=== PATIENT | female | born 1970 | race African-American/Black ===

== ENCOUNTER → 2018-08-05 | Day surgery (SDC) | payer OTHER ==
[2018-08-03 15:38] LABS: BLOOD UREA NITROGEN 14 mg/dL (7-26); BUN/CREATININE RATIO 19 (6-25); CALCIUM 9.9 mg/dL (8.4-10.2); CARBON DIOXIDE 31 mmol/L (22-29); CHLORIDE 96 mmol/L (98-107); CREATININE, SERUM 0.72 mg/dL (0.57-1.11); EST GLOMERULAR FILTRATION RATE > 60 ML/MIN (60-); GLUCOSE 105 mg/dL (74-118); SODIUM 134 mmol/L (136-145)
--- NOTE | 2018-08-03 16:33 | Diagnostic Imaging Report ---
EXAMINATION: CHEST 2 VIEWS INDICATION: Pre-admit. COMPARISON: None FINDINGS: TUBES and LINES: None. LUNGS: Lungs are well inflated. Lungs are clear. There is no evidence of pneumonia or pulmonary edema. PLEURA: No pleural effusion or pneumothorax. HEART AND MEDIASTINUM: The cardiomediastinal silhouette is unremarkable. BONES AND SOFT TISSUES: No acute osseous lesion. Soft tissues are unremarkable. UPPER ABDOMEN: No free air under the diaphragm. IMPRESSION: No acute radiographic abnormality. Signed by: Dr. Farhana Munoz MD on 08/03/2018 4:30 PM
[~2018-08-05] MED LIST: AMLODIPINE BESY10 MG PO; BIOTIN2500 MCG; BUPIVACAINE HCL 0.5% INJ 30 ML VIAL INJ ONE; CEFAZOLIN SOD 1 GM/NS 50ML 50 ML IV ONE; DEXAMETHASONE SOD PHOS INJ 4 MG/ML VIAL ONE; FENTANYL CITRATE/PF 100MCG/2 ML INJ ONE; HYDROCHLOROTHIA25 MG; KETOROLAC TROMETHAMINE 30 MG/ML VIAL ONE; LIDOCAINE HCL 2% LOCAL INJ 5 ML SDV VIAL INJ ONE; MIDAZOLAM HCL 2 MG/2 ML VIAL ONE; ONDANSETRON HCL INJ 2MG/ML 2ML 2 MG/ML VIAL ONE; PRENATAL VITAM1 EACH; PROPOFOL IV EMULSION 10 MG/ML 20 ML VIAL ONE; SEVOFLURANE INHAL SOLN 250 ML PEN BTL ONE; VALTREX1000 MG PO; ZYRTEC10 M3
--- OUTSIDE RECORDS SUMMARY | 2018-08-05 05:11 | XMS REPORT ---
Author Rashad Castellanos Organization [employer] Address Unknown Phone Unavailable Care Team Providers Care Slip Caster Name Role Phone Rashad Ray CP Unavailable Allergies, Adverse Reactions, Alerts Substance Reaction Event Type Erythromycin vomit Drug Allergy Diflucan fixed drug eruption Drug Allergy Bactrim photosensitive, anexity Drug Allergy Problems Problem Type Condition Code Onset Dates Condition Status Assessment Metatarsalgia of right foot M77.41 Active Assessment Hallux valgus (acquired), right foot M20.11 Active Assessment Metatarsalgia of left foot M77.42 Active Assessment Pain in right foot M79.671 Active Assessment Pain in left foot M79.672 Active Problem Hallux valgus (acquired), left foot M20.12 Active Problem Pain in right foot M79.671 Active Problem Hallux valgus (acquired), right foot M20.11 Active Problem Metatarsalgia of right foot M77.41 Active Assessment Hallux valgus (acquired), left foot M20.12 Active Problem Pain in left foot M79.672 Active Problem Metatarsalgia of left foot M77.42 Active Medications Medication Code System Code Instructions Start Date End Date Status Dosage Lisinopril [facility] [address]-76 Active not defined Toprol XL [facility] [address]-48 Active not defined Valacyclovir HCl [facility] [address]-03 Active not defined Vital Signs Date/Time: August 11, 2017 BMI 21.92 Index Weight 116 lbs Height 61 in Results Name Result Date Reference Range Unit Abnormality Flag X ray : Foot, right X ray : Foot, left Summary Purpose [employer] Submission
--- OUTSIDE RECORDS SUMMARY | 2018-08-05 05:11 | XMS REPORT | Summary of Care ---
Author Author TURNER CALLAWAY M.D. Organization Unknown Address Unknown Phone Unavailable Care Team Providers Care Thread Machine Operator Name Role Phone TURNER CALLAWAY M.D. Unavailable Unavailable Unavailable Unavailable Functional Status Name Dates Details Functional status health issues are not documented Status: Name Dates Details Cognitive status health issues are not documented Status: Problems Name Dates Details Tendinitis of right knee (727.09, M76.891) Status: Active Hip strain, left, initial encounter (843.9, S76.012A) Status: Active Medications Name Dates Details Valtrex TABS Active Spironolactone TABS * Refills: 0 Active Allergies and Adverse Reactions Name Dates Details Bactrim (Allergy) Status: Active Diflucan (Allergy) Status: Active erythromycin (Allergy) Status: Active Past Medical History Name Dates Details History of Arthritis (716.90, M19.90) Status: Resolved History of Back pain (724.5, M54.9) Status: Resolved History of High blood pressure (401.9, I10) Status: Resolved Procedures Procedure Dates Details History of Cyst excision Completed Immunization Name Dates Details Immunizations not documented Social History Name Dates Details - Status: Name Dates Details Never smoker Vital Signs Date Test Result Details [id number] Height 61 in Status: Weight 116 lb Status: Body Mass Index Calculated 21.92 kg/m2 Status: Body Surface Area Calculated 1.5 m2 Status: Results Date Description Value Details [id number] [U] XRAY HIP UNILATERAL MIN 2 VWS LEFT [id number] XR HIP UNILATERAL MIN 2 VWS LEFT Images acquired, not reported on this accession number. Plan of Care Name Dates Details Planned Observations Planned Goals not documented Interventions Provided Labs/Procedures/Imaging* [U] XRAY HIP UNILATERAL MIN 2 VWS LEFT [id number]; Done: 09 Jan 2018 Follow-ups/Referrals* Physical Therapy Referral Ortho; Done: 09 Jan 2018 Plan* Patient Education/Instructions: * Patient Education Provided * Reassurance * Patient/Parent to call or return with any abnormal changes * Orders: * Physical Therapy * Follow Up: * Return to the clinic in 6 weeks or as needed. Instructions Name Dates Details Instructions not documented Encounters Appointment; TURNER CALLAWAY M.D. Encounter Diagnosis: Problem not documented On: 09-Jan-2018 15:20
--- OUTSIDE RECORDS SUMMARY | 2018-08-05 05:11 | XMS REPORT | CCD ---
Author Author Auto Generated Organization [facility] Address Unknown Phone Unavailable Care Team Providers Care White Kid Buffer Name Role Phone Monse Hodgson RP Allergies, Adverse Reactions, Alerts Substance Reaction Status Bactrim Active Diflucan Active erythromycin Active Medications Medication Instructions Start Date End Date Status ondansetron 4 mg, 2 mL, Route: IVP, Drug form: 09/04/2012 09/04/2012 Discontinued INJ, ONCE, Dosing Weight 50.455, kg, PRN Nausea & Vomiting, Start date: 09/04/12 9:51:00 promethazine 12.5 mg, 50 mL, Route: IVPB, Drug 09/04/2012 09/04/2012 Discontinued form: SOLN, ONCE, Dosing Weight 50.455, kg, PRN Nausea & Vomiting, Start date: 09/04/12 9:51:00 ephedrine 5 mg, 0.1 mL, Route: IVP, Drug 09/04/2012 09/04/2012 Discontinued form: INJ, Q5Min, Dosing Weight 50.455, kg, PRN Low Blood Pressure, Start date: 09/04/12 9:51:00, Duration: 30 day, Stop date: 10/04/12 9:50:00 glycopyrrolate 0.2 mg, 1 mL, Route: IVP, Drug 09/04/2012 09/04/2012 Discontinued form: INJ, Q5Min, Dosing Weight 50.455, kg, PRN Bradycardia, Start date: 09/04/12 9:51:00, Duration: 3 doses or times, Stop date: Limited # of times albuterol 0.083% 2.49 mg, 3 mL, Route: NEB, Drug 09/04/2012 09/04/2012 Discontinued inhalation solution form: SOLN, Q5Min, Dosing Weight 50.455, kg, PRN Wheezing, Priority: STAT, Start date: 09/04/12 9:51:00, Duration: 30 day, Stop date: 10/04/12 9:50:00 racepinephrine 11.25 mg, 0.5 mL, Route: NEB, Drug 09/04/2012 09/04/2012 Discontinued Form: SOLN, Dosing Weight 50.455, kg, PRN, PRN Shortness of breath, Start date: 09/04/12 9:51:00, Duration: 30 day, Stop date: 10/04/12 9:50:00 diphenhydrAMINE 12.5 mg, 0.25 mL, Route: IVP, Drug 09/04/2012 09/04/2012 Discontinued form: INJ, PRN, Dosing Weight 50.455, kg, PRN Itching, Start date: 09/04/12 9:51:00, Duration: 30 day, Stop date: 10/04/12 9:50:00 flumazenil 0.2 mg, 2 mL, Route: IVP, Drug 09/04/2012 09/04/2012 Discontinued form: INJ, PRN, Dosing Weight 50.455, kg, PRN Benzodiazepine Reversal, Initial dose, Start date: 09/04/12 9:51:00, Duration: 30 day, Stop date: 10/04/12 9:50:00 naloxone 0.04 mg, 0.1 mL, Route: IVP, Drug 09/04/2012 09/04/2012 Discontinued form: INJ, Q2MIN, Dosing Weight 50.455, kg, PRN Narcotic Reversal, Start date: 09/04/12 9:51:00, Duration: 8 doses or times, Stop date: Limited # of times meperidine 12.5 mg, 0.5 mL, Route: IVP, Drug 09/04/2012 09/04/2012 Discontinued form: INJ, Q30Min, Dosing Weight 50.455, kg, PRN Other -See Comment, For shivering, Start date: 09/04/12 9:51:00, Duration: 2 doses or times, Stop date: Limited # of times morphine Sulfate 2 mg, 0.5 mL, Route: IVP, Drug 09/04/2012 09/04/2012 Discontinued form: INJ, Q5Min, Dosing Weight 50.455, kg, PRN Pain Score 4-6, Start date: 09/04/12 9:51:00, Duration: 8 doses or times, Stop date: Limited # of times fentanyl 25 microgram, 0.5 mL, Route: IVP, 09/04/2012 09/04/2012 Discontinued Drug form: INJ, Q5Min, Dosing Weight 50.455, kg, PRN Pain Score 6-10, Start date: 09/04/12 9:51:00, Duration: 4 doses or times, Stop date: Limited # of times Lactated Ringers 1,000 mL, Rate: 50 ml/hr, Infuse 09/04/2012 09/04/2012 Discontinued Injection IV 1,000 over: 20 hr, Route: IV, Dosing mL Weight 50.455 kg, Total Volume: 1,000, Start date: 09/04/12 9:51:00, Duration: 30 day, Stop date: 10/04/12 9:50:00 labetalol 5 mg, 1 mL, Route: IVP, Drug form: 09/04/2012 09/04/2012 Discontinued INJ, Q5Min, Dosing Weight 50.455, kg, PRN Elevated BP, Start date: 09/04/12 9:51:00, Duration: 5 doses or times, Stop date: Limited # of times acetaminophen-hydroc 15 mL, Route: PO, Drug Form: SOLN, 09/04/2012 09/04/2012 Discontinued odone 325 mg-10 Dosing Weight 50.455, kg, Q4H, PRN mg/15 mL oral Pain Score 4-6, Start date: solution 09/04/12 9:51:00, Duration: 30 day, Stop date: 10/04/12 9:50:00 enalapril 5 mg oral 10 mg, 2 tab, PO, Daily, 30 tab, 08/31/2012 Ordered tablet Substitution Allowed, TAB Toprol-XL 25 mg oral 25 mg, 1 tab, PO, Daily, 90 tab, 08/31/2012 Ordered tablet, extended Substitution Allowed, ERTAB release Ancef 2 gm, 100 mL, Route: IVPB, Drug 09/04/2012 09/04/2012 Discontinued form: INJ, ONCALL, Start date: 09/04/12 5:00:00, Duration: 1 day, Stop date: 09/05/12 4:59:00 lidocaine 1% 0.5 mL, Route: INTRADERM, Dosing 09/04/2012 09/04/2012 Completed Weight 50.455, kg, ONCALL, Start date: 09/04/12 9:00:00, Duration: 1 doses or times Lactated Ringers 1,000 mL, Rate: 25 ml/hr, Infuse 09/04/2012 09/04/2012 Discontinued Injection IV 1000 mL over: 40 hr, Route: IV, Dosing Weight 50.455 kg, Total Volume: 1,000, Start date: 09/04/12 8:15:00, Duration: 30 day, Stop date: 10/04/12 8:14:00 tramadol 50 mg, 1 tab, Route: PO, Drug form: 09/04/2012 09/04/2012 Discontinued TAB, Q4H, Dosing Weight 50.455, kg, PRN Pain Score 4-6, Start date: 09/04/12 10:41:00, Duration: 48 hr, Stop date: 09/06/12 10:40:00 ketorolac 15 mg, 0.5 mL, Route: IVP, Drug 09/04/2012 09/04/2012 Discontinued form: INJ, Q6H, Dosing Weight 50.455, kg, Start date: 09/04/12 12:00:00, Duration: 4 day, Stop date: 09/08/12 6:00:00 [id number]-[id number]-41 oral 1 tab, PO, Daily, 84 tab, 08/31/2012 Ordered tablet Substitution Allowed, Maintenance, TAB Benadryl 25 mg oral PO, prn, Substitution Allowed 08/31/2012 Ordered tablet prn valacyclovir 1 g 1 gm, 1 tab, PO, Q24H, 14 tab, 08/31/2012 Ordered oral tablet Substitution Allowed, TAB Vital Signs Most recent to oldest [Reference Range]: 1 2 3 Height 154.94 cm (09/04/2012 08:20:00) 154.94 cm (08/31/2012 16:44:00) Current Weight 50.455 kg (09/04/2012 08:20:00) Temperature Oral [96.4-99.1 DegF] 99.4 DegF *HI* (08/31/2012 16:54:00) Systolic Blood Pressure [90-140 mmHg] 136 mmHg (09/04/2012 11:15:00) 133 mmHg (09/04/2012 11:05:00) 126 mmHg (09/04/2012 10:55:00) Diastolic Blood Pressure [60-90 mmHg] 82 mmHg (09/04/2012 11:15:00) 81 mmHg (09/04/2012 11:05:00) 81 mmHg (09/04/2012 10:55:00) Respiratory Rate [14-20 BRMIN] 17 BRMIN (09/04/2012 10:15:00) 17 BRMIN (09/04/2012 10:05:00) 19 BRMIN (09/04/2012 10:00:00) Peripheral Pulse Rate [60-100 bpm] 55 bpm *LOW* (09/04/2012 08:20:00) 56 bpm *LOW* (08/31/2012 16:54:00) Weight 50.455 kg (08/31/2012 16:44:00) Results CHEMISTRY Most recent to oldest [Reference Range]: 1 Sodium Lvl [135-145 mEq/L] 137 mEq/L (08/31/2012 17:00:00) Potassium Lvl [3.5-5.1 mEq/L] 3.7 mEq/L (08/31/2012 17:00:00) Chloride Lvl [95-109 mEq/L] 102 mEq/L (08/31/2012 17:00:00) CO2 [24-32 mEq/L] 27 mEq/L (08/31/2012 17:00:00) AGAP [10.0-20.0 mEq/L] 11.7 mEq/L (08/31/2012 17:00:00) Creatinine Lvl [0.5-1.4 mg/dL] 0.7 mg/dL (08/31/2012 17:00:00) eGFR 125 mL/min/1.73m2 1 *NA* (08/31/2012 17:00:00) BUN [7-22 mg/dL] 14 mg/dL (08/31/2012 17:00:00) B/C Ratio [6-25] 20 (08/31/2012 17:00:00) Glucose Lvl [70-99 mg/dL] 78 mg/dL 2 (08/31/2012 17:00:00) Total Protein [6.4-8.4 g/dL] 7.1 g/dL (08/31/2012:00) Albumin Lvl [3.5-5.0 g/dL] 3.8 g/dL (08/31/2012:00:00) Globulin [2.0-4.0 g/dL] 3.3 g/dL (08/31/2012::00) A/G Ratio [0.7-1.6] 1.2 (08/31/2012::00) Calcium Lvl [8.5-10.5 mg/dL] 8.9 mg/dL (08/31/2012::00) ALT [0-65 unit/L] 21 unit/L (08/31/2012:00) AST [0-37 unit/L] 16 unit/L (08/31/2012:00) Alk Phos [39-136 unit/L] 45 unit/L (08/31/2012:00) Bili Total [0.2-1.3 mg/dL] 0.3 mg/dL (08/31/2012:00) U Preg [Negative] Negative (08/31/2012:00) 1Result Comment: The eGFR is calculated using the CKD-EPI formula. In most young, healthy individuals the eGFR will be >90 mL/min/1.73m2. The eGFR declines with age. An eGFR of 60-89 may be normal in some populations, particularly the elderly, for whom the CKD-EPI formula has not been extensively validated. Use of the eGFR is not recommended in the following populations: Individuals with unstable creatinine concentrations, including patients and those with serious co-morbid conditions. Patients with extremes in muscle mass or diet. The data above are obtained from the National Kid[employer] Disease Education Program ( NKDEP) which additionally recommends that when the eGFR is used in patients with extremes of body mass index for purposes of drug dosing, the eGFR should be mul tiplied by the estimated BMI. 2Interpretive Data: Adult reference range values reflect the clinical guidelines of the [place] [employer]. HEMATOLOGY Most recent to oldest [Reference Range]: 1 WBC [3.7-10.4 K/CMM] 7.1 K/CMM (08/31/201200:00) RBC [4.20-5.40 M/CMM] 3.56 M/CMM *LOW* (08/31/2012 17:00:00) Hgb [12.0-16.0 g/dL] 10.2 g/dL *LOW* (08/31/2012 17:00:00) Hct [36.0-48.0 %] 31.1 % *LOW* (08/31/2012 17:00:00) MCV [81.0-99.0 fL] 87.3 fL (08/31/2012 17:00:00) MCH [27.0-31.0 pg] 28.7 pg (08/31/2012 17:00:00) MCHC [32.0-36.0 g/dL] 32.9 g/dL (08/31/2012:00:00) RDW [11.5-14.5 %] 19.5 % *HI* (08/31/2012 17:00:00) Platelet [133-450 K/CMM] 366 K/CMM (08/31/2012 17:00:00) MPV [7.4-10.4 fL] 8.5 fL (08/31/2012 17:00:00) Segs [45.0-75.0 %] 56.2 % (08/31/2012 17:00:00) Lymphocytes [20.0-40.0 %] 34.0 % (08/31/2012 17:00:00) Monocytes [2.0-12.0 %] 8.2 % (08/31/2012 17:00:00) Eosinophils [0.0-4.0 %] 1.5 % (08/31/2012 17:00:00) Basophils [0.0-1.0 %] 0.1 % (08/31/2012 17:00:00) Segs-Bands # [1.5-8.1 K/CMM] 4.0 K/CMM (08/31/2012 17:00:00) Lymphocytes # [1.0-5.5 K/CMM] 2.4 K/CMM (08/31/2012 17:00:00) Monocytes # [0.0-0.8 K/CMM] 0.6 K/CMM (08/31/2012 17:00:00) Eosinophils # [0.0-0.5 K/CMM] 0.1 K/CMM (08/31/2012 17:00:00) Basophils # [0.0-0.2 K/CMM] 0.0 K/CMM (08/31/2012 17:00:00) Procedures Procedures Date Related Diagnosis Hysteroscopy 1 09/04/2012 00:00:00 1hysteroscopy, D& C, polypectomy
--- OUTSIDE RECORDS SUMMARY | 2018-08-05 05:11 | XMS REPORT | Continuity of Care Document ---
Author Author [facility] Interface Address Unknown Phone Unavailable Problems Problem Status Onset Date Classification Date Reported Comments Source UTERINE POLYPS Active 08/12/2012 [place] Metatarsalgia of right foot Active Diagnosis 08/15/2017 [facility] Hallux valgus , right foot Active Diagnosis 08/15/2017 [facility] Metatarsalgia of left foot Active Diagnosis 08/15/2017 [facility] Pain in right foot Active Diagnosis 08/15/2017 [facility] Pain in left foot Active Diagnosis 08/15/2017 [facility] Hallux valgus , left foot Active Problem 08/15/2017 [facility] Medications Medication Details Route Status Patient Instructions Ordering Provider Order Date Source ketorolac 15 mg, 0.5 mL, Route: IVP, Drug form: INJ, Q6H, Dosing Weight 50.455, kg, Start date: 09/04/12 12:00:00, Duration: 4 day, Stop date: 09/08/12 6:00:00 IVP No Longer Active [place] 09/04/2012 [facility] tramadol 50 mg, 1 tab, Route: PO, Drug form: TAB, Q4H, Dosing Weight 50.455, kg, PRN Pain Score 4-6, Start date: 09/04/12 10:41:00, Duration: 48 hr, Stop date: 09/06/12 10:40:00 PO No Longer Active [place] 09/04/2012 [place] ondansetron 4 mg, 2 mL, Route: IVP, Drug form: INJ, ONCE, Dosing Weight 50.455, kg, PRN Nausea & Vomiting, Start date: 09/04/12 9:51:00 IVP No Longer Active [facility] 09/04/2012 [facility] promethazine 12.5 mg, 50 mL, Route: IVPB, Drug form: SOLN, ONCE, Dosing Weight 50.455, kg, PRN Nausea & Vomiting, Start date: 09/04/12 9:51:00 IVPB No Longer Active [facility] 09/04/2012 [place] ephedrine 5 mg, 0.1 mL, Route: IVP, Drug form: INJ, Q5Min, Dosing Weight 50.455, kg, PRN Low Blood Pressure, Start date: 09/04/12 9:51:00, Duration: 30 day, Stop date: 10/04/12 9:50:00 IVP No Longer Active [facility] 09/04/2012 [place] glycopyrrolate 0.2 mg, 1 mL, Route: IVP, Drug form: INJ, Q5Min, Dosing Weight 50.455, kg, PRN Bradycardia, Start date: 09/04/12 9:51:00, Duration: 3 doses or times, Stop date: Limited # of times IVP No Longer Active [facility] 09/04/2012 [place] albuterol 0.083% inhalation solution 2.49 mg, 3 mL, Route: NEB, Drug form: SOLN, Q5Min, Dosing Weight 50.455, kg, PRN Wheezing, Priority: STAT, Start date: 09/04/12 9:51:00, Duration: 30 day, Stop date: 10/04/12 9:50:00 NEB No Longer Active [facility] 09/04/2012 [place] racepinephrine 11.25 mg, 0.5 mL, Route: NEB, Drug Form: SOLN, Dosing Weight 50.455, kg, PRN, PRN Shortness of breath, Start date: 09/04/12 9:51:00, Duration: 30 day, Stop date: 10/04/12 9:50:00 NEB No Longer Active [facility] 09/04/2012 [place] diphenhydrAMINE 12.5 mg, 0.25 mL, Route: IVP, Drug form: INJ, PRN, Dosing Weight 50.455, kg, PRN Itching, Start date: 09/04/12 9:51:00, Duration: 30 day, Stop date: 10/04/12 9:50:00 IVP No Longer Active [facility] 09/04/2012 [place] flumazenil 0.2 mg, 2 mL, Route: IVP, Drug form: INJ, PRN, Dosing Weight 50.455, kg, PRN Benzodiazepine Reversal, Initial dose, Start date: 09/04/12 9:51:00, Duration: 30 day, Stop date: 10/04/12 9:50:00 IVP No Longer Active [facility] 09/04/2012 [place] naloxone 0.04 mg, 0.1 mL, Route: IVP, Drug form: INJ, Q2MIN, Dosing Weight 50.455, kg, PRN Narcotic Reversal, Start date: 09/04/12 9:51:00, Duration: 8 doses or times, Stop date: Limited # of times IVP No Longer Active [facility] 09/04/2012 [place] meperidine 12.5 mg, 0.5 mL, Route: IVP, Drug form: INJ, Q30Min, Dosing Weight 50.455, kg, PRN Other -See Comment, For shivering, Start date: 09/04/12 9:51:00, Duration: 2 doses or times, Stop date: Limited # of times IVP No Longer Active [facility] 09/04/2012 [place] morphine Sulfate 2 mg, 0.5 mL, Route: IVP, Drug form: INJ, Q5Min, Dosing Weight 50.455, kg, PRN Pain Score 4-6, Start date: 09/04/12 9:51:00, Duration: 8 doses or times, Stop date: Limited # of times IVP No Longer Active [facility] 09/04/2012 [place] fentanyl 25 microgram, 0.5 mL, Route: IVP, Drug form: INJ, Q5Min, Dosing Weight 50.455, kg, PRN Pain Score 6-10, Start date: 09/04/12 9:51:00, Duration: 4 doses or times, Stop date: Limited # of times IVP No Longer Active [facility] 09/04/2012 [place] Lactated Ringers Injection IV 1,000 mL 1,000 mL, Rate: 50 ml/hr, Infuse over: 20 hr, Route: IV, Dosing Weight 50.455 kg, Total Volume: 1,000, Start date: 09/04/12 9:51:00, Duration: 30 day, Stop date: 10/04/12 9:50:00 IV No Longer Active [facility] 09/04/2012 [place] labetalol 5 mg, 1 mL, Route: IVP, Drug form: INJ, Q5Min, Dosing Weight 50.455, kg, PRN Elevated BP, Start date: 09/04/12 9:51:00, Duration: 5 doses or times, Stop date: Limited # of times IVP No Longer Active [facility] 09/04/2012 [facility] acetaminophen-hydrocodone 325 mg-10 mg/15 mL oral solution 15 mL, Route: PO, Drug Form: SOLN, Dosing Weight 50.455, kg, Q4H, PRN Pain Score 4-6, Start date: 09/04/12 9:51:00, Duration: 30 day, Stop date: 10/04/12 9:50:00 PO No Longer Active [facility] 09/04/2012 [facility] lidocaine 1% 0.5 mL, Route: INTRADERM, Dosing Weight 50.455, kg, ONCALL, Start date: 09/04/12 9:00:00, Duration: 1 doses or times INTRADERM No Longer Active [facility] 09/04/2012 [facility] Lactated Ringers Injection IV 1000 mL 1,000 mL, Rate: 25 ml/hr, Infuse over: 40 hr, Route: IV, Dosing Weight 50.455 kg, Total Volume: 1,000, Start date: 09/04/12 8:15:00, Duration: 30 day, Stop date: 10/04/12 8:14:00 IV No Longer Active [facility] 09/04/2012 [facility] Ancef 2 gm, 100 mL, Route: IVPB, Drug form: INJ, ONCALL, Start date: 09/04/12 5:00:00, Duration: 1 day, Stop date: 09/05/12 4:59:00 IVPB No Longer Active [place] 09/04/2012 [place] Tvh-Ldemqwpe-14 oral tablet 1 tab, PO, Daily, 84 tab, Substitution Allowed, Maintenance, TAB PO Active 08/31/2012 [place] Benadryl 25 mg oral tablet PO, prn, Substitution Allowedprn PO Active 08/31/2012 [facility] valacyclovir 1 g oral tablet 1 gm, 1 tab, PO, Q24H, 14 tab, Substitution Allowed, TAB PO Active 08/31/2012 [facility] enalapril 5 mg oral tablet 10 mg, 2 tab, PO, Daily, 30 tab, Substitution Allowed, TAB PO Active 08/31/2012 [facility] Toprol-XL 25 mg oral tablet, extended release 25 mg, 1 tab, PO, Daily, 90 tab, Substitution Allowed, ERTAB PO Active 08/31/2012 [facility] Lisinopril not defined NA Active [facility] Toprol XL not defined NA Active [facility] Valacyclovir HCl not defined NA Active [facility] Allergies, Adverse Reactions, Alerts Substance Category Reaction Severity Reaction type Status Date Reported Comments Source Bactrim Adverse Reaction photosensitive, anexity Adverse Reaction Active 08/11/2017 [facility] Diflucan Adverse Reaction fixed drug eruption Adverse Reaction Active 08/11/2017 [facility] Erythromycin Adverse Reaction vomit Adverse Reaction Active 08/11/2017 [facility] erythromycin drug allergy Allergy Active [facility] Immunizations Immunization Date Given Site Status Last Updated Comments Source Results Order Name Results Value Reference Range Date Interpretation Comments Source CHEMISTRY U Preg Negative (08/31/2012 17:00:00) Negative 08/31/2012 Normal [facility] CHEMISTRY eGFR 125 mL/min/1.73m2 08/31/2012 NA 1Result Comment: The eGFR is calculated using [...] from the National Kidney Disease Education Program (NKDEP) which additionally recommends that when the eGFR is used in patients with extremes of body mass index for purposes of drug dosing, the eGFR should be multiplied by the estimated BMI. [facility] CHEMISTRY Albumin Lvl 3.8 g/dL 3.5 - 5.0 08/31/2012 Normal [facility] CHEMISTRY ALT 21 unit/L 0 - 65 08/31/2012 Normal [facility] CHEMISTRY AST 16 unit/L 0 - 37 08/31/2012 Normal [facility] CHEMISTRY Bili Total 0.3 mg/dL 0.2 - 1.3 08/31/2012 Normal [facility] CHEMISTRY Alk Phos 45 unit/L 39 - 136 08/31/2012 Normal [facility] CHEMISTRY CO2 27 meq/L 24 - 32 08/31/2012 Normal [facility] CHEMISTRY Total Protein 7.1 g/dL 6.4 - 8.4 08/31/2012 Normal [facility] CHEMISTRY Calcium Lvl 8.9 mg/dL 8.5 - 10.5 08/31/2012 Normal [facility] CHEMISTRY BUN 14 mg/dL 7 - 22 08/31/2012 Normal [facility] CHEMISTRY Creatinine Lvl 0.7 mg/dL 0.5 - 1.4 08/31/2012 Normal [facility] CHEMISTRY Sodium Lvl 137 meq/L 135 - 145 08/31/2012 Normal [facility] CHEMISTRY Glucose Lvl 78 mg/dL 70 - 99 08/31/2012 Normal 2Interpretive Data: Adult reference range values reflect the clinical guidelines of the [place] [employer]. [facility] CHEMISTRY Potassium Lvl 3.7 meq/L 3.5 - 5.1 08/31/2012 Normal [facility] CHEMISTRY Chloride Lvl 102 meq/L 95 - 109 08/31/2012 Normal [facility] CHEMISTRY AGAP 11.7 meq/L 10.0 - 20.0 08/31/2012 Normal [facility] CHEMISTRY A/G Ratio 1.2 0.7 - 1.6 08/31/2012 Normal [facility] CHEMISTRY B/C Ratio 20 6 - 25 08/31/2012 Normal [facility] CHEMISTRY Globulin 3.3 g/dL 2.0 - 4.0 08/31/2012 Normal [facility] HEMATOLOGY RDW 19.5 % 11.5 - 14.5 08/31/2012 [place] [facility] HEMATOLOGY Platelet 366 K/CMM 133 - 450 08/31/2012 Normal [facility] HEMATOLOGY MPV 8.5 fL 7.4 - 10.4 08/31/2012 Normal [facility] HEMATOLOGY Hgb 10.2 g/dL 12.0 - 16.0 08/31/2012 LOW [facility] HEMATOLOGY WBC 7.1 K/CMM 3.7 - 10.4 08/31/2012 Normal [facility] HEMATOLOGY RBC 3.56 M/CMM 4.20 - 5.40 08/31/2012 LOW [facility] HEMATOLOGY Hct 31.1 % 36.0 - 48.0 08/31/2012 LOW [place] HEMATOLOGY MCV 87.3 fL 81.0 - 99.0 08/31/2012 Normal [place] HEMATOLOGY MCHC 32.9 g/dL 32.0 - 36.0 08/31/2012 Normal [place] HEMATOLOGY MCH 28.7 pg 27.0 - 31.0 08/31/2012 Normal [place] HEMATOLOGY Monocytes 8.2 % 2.0 - 12.0 08/31/2012 Normal [place] HEMATOLOGY Lymphocytes 34.0 % 20.0 - 40.0 08/31/2012 Normal [place] HEMATOLOGY Eosinophils # 0.1 K/CMM 0.0 - 0.5 08/31/2012 Normal [place] HEMATOLOGY Basophils # 0.0 K/CMM 0.0 - 0.2 08/31/2012 Normal [place] HEMATOLOGY Basophils 0.1 % 0.0 - 1.0 08/31/2012 Normal [place] HEMATOLOGY Eosinophils 1.5 % 0.0 - 4.0 08/31/2012 Normal [place] HEMATOLOGY Segs-Bands # 4.0 K/CMM 1.5 - 8.1 08/31/2012 Normal [place] HEMATOLOGY Lymphocytes # 2.4 K/CMM 1.0 - 5.5 08/31/2012 Normal [place] HEMATOLOGY Monocytes # 0.6 K/CMM 0.0 - 0.8 08/31/2012 Normal [place] HEMATOLOGY Segs 56.2 % 45.0 - 75.0 08/31/2012 Normal [facility] Vital Signs Vital Sign Value Date Comments Source Weight 116 08/11/2017 [facility] Height 61 08/11/2017 [facility] Systolic (mm Hg) 136 09/04/2012 [place] Diastolic (mm Hg) 82 09/04/2012 [place] Diastolic (mm Hg) 81 09/04/2012 [place] Systolic (mm Hg) 133 09/04/2012 [place] Diastolic (mm Hg) 81 09/04/2012 [place] Systolic (mm Hg) 126 09/04/2012 [place] Respitory Rate 17 09/04/2012 [place] Respitory Rate 17 09/04/2012 [place] Respitory Rate 19 09/04/2012 [place] Height 154.94 cm 09/04/2012 [place] Heart Rate 55 09/04/2012 [place] Heart Rate 56 08/31/2012 [place] Temperature Oral (F) 99.4 F 08/31/2012 [place] Height 154.94 cm 08/31/2012 [place] Weight 50.455 08/31/2012 [facility] Encounters Location Location Details Encounter Type Encounter Number Reason For Visit Attending Provider ADM Date DC Date Status Source [facility] DS [id number] RYAN QUINN 09/04/2012 09/04/2012 Active [facility] Procedures Procedure Code Date Perfomer Comments Source Hysteroscopy <sup>1</sup> [id number] 09/04/2012 [place] 1hysteroscopy, D& C, polypectomy [facility]
--- OUTSIDE RECORDS SUMMARY | 2018-08-05 05:11 | XMS REPORT ---
[facility] Address Unknown Phone Unavailable Care Team Providers Care Line Prep Cook Name Role Phone STEVEN Sharmin LOYOLA Unavailable Unavailable Problems This patient has no known problems. Allergies, Adverse Reactions, Alerts This patient has no known allergies or adverse reactions. Medications This patient has no known medications. Results Test Description Test Time Test Comments Text Results Atomic Results Result Comments CHEST 2 VIEWS 2018-08-03 16:29:00 [place] [address] Patient Name: JORDAN LYONS MR #: [id number] : 1970 Age/Sex: 47/F Req #: [id number] Adm Physician: Ordered by: MILLA HARRIS DPM Report #: [id number] Location: OR Room/Bed: Procedure: [id number] DX/CHEST 2 VIEWS Exam Date: 08/03/18 Exam Time: 1520 REPORT STATUS: Signed EXAMINATION: CHEST 2 VIEWS INDICATION: Pre-admit. COMPARISON: None FINDINGS: TUBES and LINES: None. LUNGS: Lungs are well inflated. Lungs are clear. There is no evidence of pneumonia or pulmonary edema. PLEURA: No pleural effusion or pneumothorax. HEART AND MEDIASTINUM: The cardiomediastinal silhouette is unremarkable. BONES AND SOFT TISSUES: No acute osseous lesion. Soft tissues are unrem arkable. UPPER ABDOMEN: No free air under the diaphragm. IMPRESSION: No acute radiographic abnormality. Signed by: Dr. Hien Stovall MD on 08/03/2018 4:30 PM Dictated By: HIEN STOVALL MD 1630 Transcribed By: RAVEN on 08/03/18 1630 COPY TO: MILLA HARRIS DPM
[2018-08-05 08:45] VITALS: BP 137/81
--- NOTE | 2018-08-05 13:54 | Operative Report ---
DATE OF PROCEDURE: SURGEON: Nalini Malik DPM PREOPERATIVE DIAGNOSIS: Right hallux valgus. POSTOPERATIVE DIAGNOSIS: Right hallux valgus. PLANNED PROCEDURE: Right Idris bunionectomy with 1st metatarsal osteotomy and internal fixation. ANESTHESIA: General with a postop block consisting of 15 mL of 0.5% Marcaine plain mixed with 1 mL dexamethasone phosphate. HEMOSTASIS: Pneumatic thigh tourniquet set at 250 mmHg for a total time of approximately 30 minutes. ESTIMATED BLOOD LOSS: Less than 10 mL. MATERIALS: Two 2.0 mm x 12 mm cortical bone screws, 2-0 Vicryl, 3-0 Vicryl, and 4-0 Prolene. PATHOLOGY: None. PROCEDURE NOTE: The patient was seen in the preoperative waiting area, where the correct procedure and site was identified. The patient was brought to the operating room, placed on the operating table in the supine position. General anesthesia was initiated. At this time, a well-padded pneumatic tourniquet was placed about the patient's right thigh. The right foot, ankle, and leg was scrubbed, prepped, and draped in the usual aseptic manner. The right foot ankle leg was exsanguinated with an Esmarch bandage and the pneumatic thigh tourniquet was inflated to 350 mmHg for a total time approximately 30 minutes. Attention was directed to the dorsomedial aspect of the patient's right 1st metatarsophalangeal joint where a 5 cm curvilinear incision was made directly over the 1st metatarsophalangeal joint. Incision was medial to the extensor hallucis longus tendon. The dissection was carried through subcutaneous tissue them from deep or underlying structures. All vital neurovascular structures were identified, retracted medial and lateral and all bleeders were cauterized or ligated as deemed necessary. Next, through the same incision a full lateral release was performed consisting of a deep transverse metatarsal ligament, lateral collateral ligament, as well as a fibular sesamoid ligament. The hallux was then put through range of motion and found to be functioning in a more proper anatomic alignment. Next, attention was directed back to the 1st metatarsal phalangeal joint where a medial eminence was resected utilizing a sagittal saw. Next, utilizing a K-wire as a temporary guidewire, a medial to lateral Chevron osteotomy was performed with the dorsal wing longer to allow for proper fixation. The capital fragment was transposed laterally approximately 3 to 4 mm and impacted onto the shaft of the 1st metatarsal. This was temporarily fixated with a K-wire and permanently fixated utilizing techniques of AO fixation with two 2.0 mm x 12 mm cortical bone screws. Fixation site was stable. This was confirmed via intraoperative fluoroscopy. The wound was then flushed with copious amounts of sterile saline. Capsule and deep tissue were reapproximated with 2-0 Vicryl, subcutaneous tissue with 3-0 Vicryl. The skin was closed using a running interlocking stitch with a 4-0 Monocryl. The incision site was dressed with Mastisol, Steri-Strips, 4 x 4, Kerlix, Barry wrap, and a postop shoe. The patient tolerated the procedure and anesthesia well. The patient was transferred to postop recovery with vital signs stable and vascular status intact. The patient was monitored there for a short period of time before being sent home with the following written and oral instructions. 1. Keep the dressing clean, dry, and intact. 2. The patient is to remain partial weightbearing in a postop shoe to avoid excessive ambulation until being seen in the office. 3. The patient was given office number to contact us if any problems arise. URBAN Sanderson/ZEEL /[id number]
== END | disposition home or self-care (01) ==
LOC: OR 05:08
PROVIDERS: ATTEND Podiatrist Foot & Ankle Surgery
DX: M20.11 Hallux valgus (acquired), right foot (principal); Z01.812 Encounter for preprocedural laboratory examination; Z01.811 Encounter for preprocedural respiratory examination; I10 Essential (primary) hypertension; Z88.2 Allergy status to sulfonamides; Z88.8 Allergy status to other drugs, medicaments and biological substances; E87.6 Hypokalemia
CPT/HCPCS: 28296; 36415 ×2; 71046; 80048; 81025; 84132; C1713; J0690; J1100; J1885; J2001; J2250; J2405; J2704

== ENCOUNTER → 2019-02-24 | Day surgery (SDC) | payer OTHER ==
--- NOTE | 2019-02-22 15:53 | Diagnostic Imaging Report ---
EXAMINATION: CHEST 2 VIEWS INDICATION: Pre-operative COMPARISON: None FINDINGS: LINES/TUBES:None LUNGS:The lungs are well-inflated. No focal consolidation or pulmonary edema. PLEURA:No pleural effusion or pneumothorax. MEDIASTINUM:The cardiomediastinal silhouette appears normal in size and shape. BONES/SOFT TISSUES:No acute osseous injury. ABDOMEN:No free air under the diaphragm. IMPRESSION: No focal pneumonia or pulmonary edema. Signed by: Juan Miguel Navarro MD on 02/22/2019 3:50 PM
[2019-02-22 15:54] LABS: ANION GAP 9.4 mmol/L (8-16); BLOOD UREA NITROGEN 14 mg/dL (7-26); BUN/CREATININE RATIO 23 (6-25); CALCIUM 9.3 mg/dL (8.4-10.2); CARBON DIOXIDE 30 mmol/L (22-29); CHLORIDE 102 mmol/L (98-107); CREATININE, SERUM 0.61 mg/dL (0.57-1.11); EST GLOMERULAR FILTRATION RATE > 60 ML/MIN (60-); GLUCOSE 76 mg/dL (74-118); POTASSIUM 3.4 mmol/L (3.5-5.1); SODIUM 138 mmol/L (136-145)
[~2019-02-24] MED LIST changes: -BIOTIN2500 MCG; +BIOTIN2500 MCG PO; +KETAMINE HCL INJ 50 MG/ML 10 ML VIAL ONE; -KETOROLAC TROMETHAMINE 30 MG/ML VIAL ONE; +LISINOPRIL10 MG PO; -PRENATAL VITAM1 EACH; +PRENATAL VITAM1 EACH PO; -ZYRTEC10 M3; +ZYRTEC10 M3 PO
[2019-02-24 08:45] VITALS: BP 134/88
--- NOTE | 2019-02-24 11:36 | Operative Report ---
DATE OF PROCEDURE: 02/24/2019 SURGEON: Nalini Malik DPM PREOPERATIVE DIAGNOSIS: Left hallux valgus. POSTOPERATIVE DIAGNOSIS: Left hallux valgus. PLANNED PROCEDURE: Left Idris bunionectomy with 1st metatarsal osteotomy and internal fixation. 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 ANESTHESIA: General with a postoperative block consisting of 15 mL of 0.5% Marcaine plain. HEMOSTASIS: Pneumatic thigh tourniquet set at 350 mmHg for a total time of approximately 30 minutes. MATERIALS: Two 2.0 mm x 14 mm cortical bone screws Synthes, 2-0 Vicryl, 3-0 Vicryl, and 4-0 Monocryl. ESTIMATED BLOOD LOSS: Less than 10 mL. PATHOLOGY: None. PROCEDURE NOTE: The patient was seen in the preoperative waiting room, where the correct procedure and site was identified. The patient was brought to the operating room and placed on the operating table in the supine position. General anesthesia was initiated. At this time, a well-padded pneumatic tourniquet was placed about the patient's left thigh. The left foot, ankle, and leg was then scrubbed, prepped, and draped in the usual aseptic manner. The left foot, ankle, and leg was exsanguinated with an Esmarch bandage and the pneumatic thigh tourniquet was inflated to 350 mmHg for a total time of approximately 35 minutes. Attention was directed to the dorsal medial aspect of the patient's left foot, where a 4 cm curvilinear incision was made directly over the 1st metatarsophalangeal joint. The incision was carried to subcutaneous tissue and them from deep or underlying structures. All vital and neurovascular structures were identified, retracted medially and laterally. All bleeders were cauterized or ligated as deemed necessary. At this time, through the same incision, a full lateral release was performed consisting of the deep transverse metatarsal ligament, lateral collateral ligament as well as the fibular sesamoidal ligament. The hallux was then put through range of motion and found to be functioning in a more proper anatomic alignment. Next, attention was then directed to the medial aspect of the 1st metatarsophalangeal joint, where an inverted L-capsulotomy was performed. The capsule was dissected medially to allow for good visualization of the 1st metatarsal head. Utilizing a sagittal saw, the medial eminence was resected and passed off to the back table. Next, utilizing a sagittal saw, a medial to lateral Chevron osteotomy was performed with the dorsal wing longer to allow for proper fixation. The capital fragment was transposed laterally approximately 3 to 5 mm and impacted onto the shaft of the 1st metatarsal. Utilizing techniques of AO fixation, two 2.0 mm x 14 mm cortical bone screws were placed. The fixation site was stable. The wound was then copiously irrigated with sterile saline. Capsule and deep tissue were reapproximated with 2-0 Vicryl, subcutaneous tissue with 3-0 Vicryl, and the skin was closed using a running interlocking stitch of 4-0 Monocryl. The incision site was then dressed with Mastisol, Steri-Strips, 4x4s, Kerlix, Barry wrap, and a postop shoe. The patient tolerated the procedure and anesthesia well. The patient was transferred to the postoperative recovery unit with vital signs stable and vascular status intact. The patient was monitored there for a short period of time before being sent home with the following written and oral instructions: 1. Keep the dressing clean, dry, and intact. 2. The patient is to remain partial weightbearing in a postop shoe to avoid excessive ambulation until being seen in the office. 3. The patient was given the office number and instructed to contact us if any problems arise. URBAN Sanderson/MODL /[id number]
== END | disposition home or self-care (01) ==
LOC: OR 05:27
PROVIDERS: ATTEND Podiatrist Foot & Ankle Surgery
DX: M20.12 Hallux valgus (acquired), left foot (principal); Z01.810 Encounter for preprocedural cardiovascular examination; Z01.812 Encounter for preprocedural laboratory examination; Z01.811 Encounter for preprocedural respiratory examination; I10 Essential (primary) hypertension; Z88.2 Allergy status to sulfonamides; Z88.8 Allergy status to other drugs, medicaments and biological substances
CPT/HCPCS: 28296; 36415; 71046; 80048; 81025; 93005; C1713; J0690; J1100; J2001; J2250; J2405; J2704; J3010